=== PATIENT | female | born 2000 | race Caucasian/White ===

== ENCOUNTER 2022-07-01 18:01 | Emergency (ER) | payer SELFPAY ==
[~2022-07-01] VITALS: Ht 157.5 cm; Wt 45.4 kg
[2022-07-01 19:20] LABS: *URINE HCG, QUAL NEG (NEGATIVE)
[2022-07-01] MEDS ORDERED: LORA-258 PO (19:53)
--- NOTE | 2022-07-01 20:01 | NUR ---
Patient discharged to home in stable condition with boyfriend taking patient home. Written and verbal after care instructions given. Patient verbalizes understanding of instructions. Stressed follow up or return to ER for worsening s/s.
[2022-07-01 20:34] VITALS: BP 100/50
== END 2022-07-01 20:35 | disposition home or self-care (01) ==
LOC: ER 18:01
DX: F41.9 Anxiety disorder, unspecified (principal); E55.9 Vitamin D deficiency, unspecified
CPT/HCPCS: 84703; A4663